=== PATIENT | female | born 1950 | race Caucasian/White ===

== ENCOUNTER 2018-04-25 07:13 | Day surgery (SDC) | payer MEDICARE ==
[~2018-04-25] VITALS: Ht 175.3 cm; Wt 70.3 kg
[~2018-04-25 07:13] MED LIST: ADVIL200 MG PO; ALLERGY10 MG PO; FEOSOL BIFERA 228 MG PO; FLONASE ALLERG9.9 ML NAS; GLUCOPHAGE500 MG PO; LOSARTAN-HCTZ1 EAC2 PO; METFORMIN HCL500 M2 PO; METOPROLOL SUCC50 MG PO; PEPCID20 MG PO; PREMARIN30 GM PV; TRAZODONE HCL50 MG NG
[2018-04-25] MEDS ORDERED: ACID REDUCER75 MG PO (07:30)
--- NOTE | 2018-04-25 08:50 | NUR ---
04/25/18 0849 Cindy Gilliland 0819 PATIENT ARRIVES TO PACU SLEEPING, OPENS EYES WITH REPEATED VERBAL STIMULI, BUT DOES NOT FOLLOW COMMANDS, THEN BACK TO SLEEP. RESP EVEN AND UNLABORED, 95% ON ROOM AIR.
--- NOTE | 2018-04-26 08:11 | OR ---
[facility] [address], [place] [address] Signed DATE OF OPERATION: 04/25/2018 SURGEON: Priscila Gallo MD COLONOSCOPY REPORT PREOPERATIVE DIAGNOSES: 1. Hyperplastic polyps in 2007. 2. Irritable bowel syndrome. 3. Screening. POSTOPERATIVE DIAGNOSES: 1. 3 mm polyps x2 at 17 cm. 2. Left-sided diverticulosis. PROCEDURE PERFORMED: Colonoscopy with hot biopsy. ESTIMATED BLOOD LOSS: None. INDICATIONS: William is a 67-year-old female, who came for followup screening colonoscopy. She has had irritable bowel syndrome back to when she was a kid. She also had some hyperplastic polyps taken out back in 2007. I gave her a pamphlet in the office on colonoscopy, we looked at that together along with the risks including, but not limited to gas bloating, crampy abdominal pain, bleeding, perforation, requiring surgery, and missed diagnosis. We also discussed the need for IV conscious sedation. She had expressed understanding and wished to proceed. PROCEDURE NOTE: William was taken into our endoscopy suite and placed in the left lateral decubitus position. She was given IV sedation with 7 mg of Versed and 125 mcg of fentanyl. A digital rectal exam was performed and this was unremarkable. The adult colonoscope was introduced and advanced all around into the cecum under direct visualization of camera without difficulty. Her prep was good. The scope was then slowly withdrawn. We could see that she had diverticula in the left colon, they were moderate in size, few in number, and scattered about. In just above the rectum, it is 17 cm were too small, hyperplastic appearing polyps. There were easily removed with hot biopsy forceps. The rectum itself was unremarkable. No additional pathology noted above the anal canal. Electronically Signed By: PRISCILA GALLO MD 04/26/18 0811 PATIENT NAME: WILLIAM PATEL OPERATIVE REPORT DATE OF : 46 REPORT #: [id number] PHYSICIAN: PRISCILA GALLO MD PCP: JOSH LOPES DO REPORT IS CONFIDENTIAL AND NOT TO BE RELEASED WITHOUT AUTHORIZATION [address] [address] Signed Upon retroflexion of the scope; after this, the gas was suctioned out and the colonoscope was removed. William tolerated procedure quite well. RECOMMENDATIONS: I will see William back in my office in 7 to 14 days to review her results. Priscila Gallo MD ALB/MODL /[id number] cc: MD Josh Prater DO Copies: PRISCILA GALLO MD, ARIAN DO ~ Electronically Signed By: PRISCILA GALLO MD 04/26/18 0811 PATIENT NAME: WILLIAM PATEL OPERATIVE REPORT DATE OF : 46 REPORT #: [id number] PHYSICIAN: PRISCILA GALLO MD PCP: JOSH LOPES DO REPORT IS CONFIDENTIAL AND NOT TO BE RELEASED WITHOUT AUTHORIZATION
== END 2018-04-25 11:05 | disposition home or self-care (01) ==
LOC: DS 07:13 → OPS 07:13 → DS 08:15 → OPS 11:05
PROVIDERS: Colon & Rectal Surgery
PROC: 0DBE8ZZ Excision of Large Intestine, Via Natural or Artificial Opening Endoscopic (ICD-10-PCS; principal; 2018-04-25 08:15)
DX: Z12.11 Encounter for screening for malignant neoplasm of colon (principal); K63.5 Polyp of colon; K57.30 Diverticulosis of large intestine without perforation or abscess without bleeding; K58.9 Irritable bowel syndrome, unspecified; I10 Essential (primary) hypertension; M81.0 Age-related osteoporosis without current pathological fracture; G43.909 Migraine, unspecified, not intractable, without status migrainosus; G25.81 Restless legs syndrome; G47.33 Obstructive sleep apnea (adult) (pediatric); Z99.89 Dependence on other enabling machines and devices; Z86.010 Personal history of colon polyps; Z88.2 Allergy status to sulfonamides; Z88.5 Allergy status to narcotic agent; Z79.899 Other long term (current) drug therapy
CPT/HCPCS: 99153; G0500; J2250; J3010; J7120